=== PATIENT | female | born 1965 | race Hispanic/Latino ===

== ENCOUNTER 2024-09-02 19:27 | Inpatient (IN) | payer SELFPAY ==
[~2024-09-02] VITALS: Ht 149.9 cm; Wt 54.4 kg
[2024-09-02] MEDS ORDERED: KETOROLAC TROMETHAMINE 30 MG/ML VIAL ONE (20:19)
[2024-09-02] MEDS: Morphine 4mg INJECTION 4 MG/ML INJ IV PRN (22:08)
[2024-09-02] MEDS: ONDANSETRON HCL INJ 2MG/ML 2ML 2 MG/ML VIAL IV PRN (22:08)
[2024-09-02 22:19] VITALS: PULSE 97; RESP 18; TEMP 98.3
[2024-09-02] MEDS ORDERED: DEXTROSE 50% SYRINGE 50 ML IV PRN (22:45)
[2024-09-02] MEDS ORDERED: HYDRALAZINE HCL 20 MG/ML VIAL IV PRN (22:45)
[2024-09-02] MEDS: KETOROLAC TROMETHAMINE 60 MG/2 ML VIAL IM ONE (22:47)
[2024-09-02] MEDS: SODIUM CHLORIDE 0.9% 1000ML 1,000 ML IV SCH (23:37)
[2024-09-02] MEDS: KETOROLAC TROMETHAMINE 30 MG/ML VIAL IV STA (23:37)
[2024-09-03] VITALS: BP 157/78; PULSE 89; RESP 18; TEMP 98.2; O2SAT 100
[2024-09-03] MEDS: INSULIN REGULAR, HUMAN 100 UNIT/1 ML SQ SCH
[2024-09-03 05:07] LABS: BASOPHILS % 0.3 % (0.0-1.0); HEMATOCRIT 32.1 % (34.2-44.1); HEMOGLOBIN 9.8 g/dL (12.0-16.0); LYMPHOCYTES # (AUTO) 0.6 (1.0-3.2); LYMPHOCYTES % 9.5 % (18.0-39.1); MEAN CORPUSCULAR HEMOGLOBIN 29.7 pg (28-32); MEAN CORPUSCULAR HGB CONC 30.5 g/dL (31-35); MEAN CORPUSCULAR VOLUME 97.3 fL (81-99); MONOCYTES # (AUTO) 0.5 (0.2-0.8); MONOCYTES % 8.5 % (4.4-11.3); NEUTROPHILS % 81.4 % (38.7-80.0); PLATELET COUNT 142 x10e3/uL (140-360); RED CELL DISTRIBUTION WIDTH 13.2 % (11.7-14.4)
[2024-09-03 05:35] LABS: PROTHROMBIN TIME 13.8 seconds (11.9-14.5)
[2024-09-03 05:36] LABS: PARTIAL THROMBOPLASTIN TIME 30.8 seconds (23.8-35.5)
[2024-09-03 05:43] LABS: ALBUMIN 3.2 g/dL (3.5-5.0); ALBUMIN/GLOBULIN RATIO 0.7 (0.8-2.0); ANION GAP 12.2 mmol/L (8-16); BILIRUBIN,TOTAL 0.3 mg/dL (0.2-1.2); CALCIUM 8.9 mg/dL (8.4-10.2); CREATININE, SERUM 0.66 mg/dL (0.57-1.11); POTASSIUM 4.2 mmol/L (3.5-5.1); TOTAL PROTEIN 8.1 g/dL (6.5-8.1)
[2024-09-03 08:00] VITALS: BP 157/78; PULSE 89; RESP 18; TEMP 98.2; O2SAT 100
[2024-09-03 08:30] VITALS: BP 169/72; PULSE 85; RESP 18; TEMP 98.4; O2SAT 98
[2024-09-03 12:30] VITALS: BP 128/76; PULSE 85; RESP 18; TEMP 97.8; O2SAT 98
[2024-09-03] MEDS ORDERED: ROCURONIUM BROMIDE 1 ML IV ONE ×2 (13:54→17:26)
[2024-09-03] MEDS ORDERED: LIDOCAINE HCL 2% LOCAL INJ 5 ML SDV VIAL INJ ONE (13:54)
[2024-09-03] MEDS ORDERED: SUCCINYLCHOLINE CHLORIDE 20 MG/ML 10ML VIAL ONE (13:54)
[2024-09-03] MEDS ORDERED: PROPOFOL IV EMULSION 10 MG/ML 20 ML VIAL ONE (13:55)
[2024-09-03] MEDS ORDERED: SUGAMMADEX SODIUM 200 MG/2 ML VIAL IV ONE (13:55)
[2024-09-03] MEDS ORDERED: FENTANYL CITRATE/PF 100MCG/2 ML INJ ONE ×2 (13:55→17:54)
[2024-09-03] MEDS ORDERED: MIDAZOLAM HCL 2 MG/2 ML VIAL ONE (13:56)
[2024-09-03] MEDS ORDERED: ACETAMINOPHEN 1000 MG/100 ML 100 ML IV ONE (16:42)
[2024-09-03] MEDS ORDERED: SEVOFLURANE INHAL SOLN 250 ML PEN BTL ONE (16:42)
[2024-09-03 20:00] VITALS: BP 139/59; PULSE 67; RESP 16; TEMP 97.8; O2SAT 95
[2024-09-03] MEDS: KETOROLAC TROMETHAMINE 30 MG/ML VIAL IM PRN (20:07)
[2024-09-04] VITALS (8 sets, daily range): BP systolic 106–123; BP diastolic 50–55; PULSE 67–86; RESP 16–19; TEMP 97–98.7; O2SAT 94–98
[2024-09-04 05:08] LABS: BASOPHILS % 0.2 % (0.0-1.0); HEMATOCRIT 25.7 % (34.2-44.1); HEMOGLOBIN 8.2 g/dL (12.0-16.0); LYMPHOCYTES # (AUTO) 0.5 (1.0-3.2); LYMPHOCYTES % 9.1 % (18.0-39.1); MEAN CORPUSCULAR HEMOGLOBIN 29.7 pg (28-32); MEAN CORPUSCULAR HGB CONC 31.9 g/dL (31-35); MEAN CORPUSCULAR VOLUME 93.1 fL (81-99); MONOCYTES # (AUTO) 0.4 (0.2-0.8); NEUTROPHILS # (AUTO) 4.3 (2.1-6.9); NEUTROPHILS % 82.1 % (38.7-80.0); PLATELET COUNT 124 x10e3/uL (140-360); RED BLOOD COUNT 2.76 x10e6/uL (3.6-5.1); RED CELL DISTRIBUTION WIDTH 13.6 % (11.7-14.4); WHITE BLOOD COUNT 5.28 x10e3/uL (4.8-10.8)
[2024-09-04 05:28] LABS: ALBUMIN 2.8 g/dL (3.5-5.0); ALBUMIN/GLOBULIN RATIO 0.7 (0.8-2.0); ANION GAP 10.7 mmol/L (8-16); BILIRUBIN,TOTAL 0.4 mg/dL (0.2-1.2); CALCIUM 8.3 mg/dL (8.4-10.2); CREATININE, SERUM 0.6 mg/dL (0.57-1.11); POTASSIUM 3.7 mmol/L (3.5-5.1)
[2024-09-04] MEDS: ENOXAPARIN SOD INJ 40 MG/0.4 ML SYR SC SCH (09:54)
[2024-09-04] MEDS: SENNA-S TABLET PO SCH (09:54)
[2024-09-04 10:04] LABS: FERRITIN 155.47 ng/mL (4.63-204.00)
[2024-09-05] VITALS (8 sets, daily range): BP systolic 125–171; BP diastolic 53–79; PULSE 73–97; RESP 16–20; TEMP 97.6–99.1; O2SAT 96–100
[2024-09-05 05:35] LABS: BASOPHILS % 0.2 % (0.0-1.0); EOSINOPHILS # (AUTO) 0.1 (0.0-0.4); EOSINOPHILS % 1.7 % (0.0-6.0); HEMATOCRIT 23.2 % (34.2-44.1); LYMPHOCYTES # (AUTO) 0.7 (1.0-3.2); LYMPHOCYTES % 14.3 % (18.0-39.1); MEAN CORPUSCULAR HEMOGLOBIN 29.7 pg (28-32); MEAN CORPUSCULAR HGB CONC 30.6 g/dL (31-35); MEAN CORPUSCULAR VOLUME 97.1 fL (81-99); MONOCYTES # (AUTO) 0.6 (0.2-0.8); MONOCYTES % 12.4 % (4.4-11.3); NEUTROPHILS # (AUTO) 3.3 (2.1-6.9); NEUTROPHILS % 71.2 % (38.7-80.0); PLATELET COUNT 110 x10e3/uL (140-360); RED BLOOD COUNT 2.39 x10e6/uL (3.6-5.1); RED CELL DISTRIBUTION WIDTH 13.3 % (11.7-14.4); WHITE BLOOD COUNT 4.68 x10e3/uL (4.8-10.8)
[2024-09-05 05:37] LABS: HEMOGLOBIN 7.1 g/dL (12.0-16.0)
[2024-09-05 05:56] LABS: ALBUMIN 2.7 g/dL (3.5-5.0); ALBUMIN/GLOBULIN RATIO 0.7 (0.8-2.0); ANION GAP 10.5 mmol/L (8-16); BILIRUBIN,TOTAL 0.4 mg/dL (0.2-1.2); CALCIUM 8.4 mg/dL (8.4-10.2); CREATININE, SERUM 0.55 mg/dL (0.57-1.11); POTASSIUM 3.5 mmol/L (3.5-5.1); TOTAL PROTEIN 6.8 g/dL (6.5-8.1)
[2024-09-05] MEDS: SODIUM CHLORIDE 0.9% 250ML 250 ML IV ONE (09:40)
[2024-09-05] MEDS: DIPHENHYDRAMINE HCL INJ 50 MG/ML VIAL IV ONE (09:40)
[2024-09-05] MEDS: ACETAMINOPHEN 325 MG TAB PO PRN (11:39)
[2024-09-05] MEDS ORDERED: no home meds (11:59)
[2024-09-05] MEDS: POLYETHYLENE GLYCOL 3350 17 GM PACK PO PRN (14:40)
[2024-09-06] VITALS (7 sets, daily range): BP systolic 117–150; BP diastolic 52–65; PULSE 74–91; RESP 16–18; TEMP 98.2–98.4; O2SAT 95–100
[2024-09-06 06:03] LABS: BASOPHILS % 0.2 % (0.0-1.0); EOSINOPHILS # (AUTO) 0.1 (0.0-0.4); EOSINOPHILS % 2.6 % (0.0-6.0); LYMPHOCYTES # (AUTO) 0.6 (1.0-3.2); LYMPHOCYTES % 10.4 % (18.0-39.1); MEAN CORPUSCULAR HEMOGLOBIN 30.3 pg (28-32); MEAN CORPUSCULAR VOLUME 97.6 fL (81-99); MONOCYTES # (AUTO) 0.6 (0.2-0.8); MONOCYTES % 11.2 % (4.4-11.3); NEUTROPHILS % 75.2 % (38.7-80.0); PLATELET COUNT 136 x10e3/uL (140-360); RED BLOOD COUNT 2.51 x10e6/uL (3.6-5.1); RED CELL DISTRIBUTION WIDTH 13.3 % (11.7-14.4); WHITE BLOOD COUNT 5.37 x10e3/uL (4.8-10.8)
[2024-09-06 06:16] LABS: HEMATOCRIT 23.5 % (34.2-44.1); HEMOGLOBIN 7.7 g/dL (12.0-16.0)
[2024-09-06 06:26] LABS: ALBUMIN 2.8 g/dL (3.5-5.0); ALBUMIN/GLOBULIN RATIO 0.6 (0.8-2.0); ANION GAP 12.7 mmol/L (8-16); BILIRUBIN,TOTAL 0.6 mg/dL (0.2-1.2); CALCIUM 9.2 mg/dL (8.4-10.2); CREATININE, SERUM 0.54 mg/dL (0.57-1.11); POTASSIUM 3.7 mmol/L (3.5-5.1); TOTAL PROTEIN 7.2 g/dL (6.5-8.1)
[2024-09-07] VITALS (7 sets, daily range): BP systolic 118–141; BP diastolic 53–95; PULSE 81–93; RESP 16–18; TEMP 97.5–97.7; O2SAT 99–100
[2024-09-07 05:39] LABS: HEMATOCRIT 24.4 % (34.2-44.1); HEMOGLOBIN 7.9 g/dL (12.0-16.0)
[2024-09-07 06:13] LABS: ANION GAP 12.9 mmol/L (8-16); CALCIUM 9.2 mg/dL (8.4-10.2); CREATININE, SERUM 0.6 mg/dL (0.57-1.11); POTASSIUM 3.9 mmol/L (3.5-5.1)
[2024-09-07] MEDS: DIPHENHYDRAMINE HCL 25 MG CAP PO ONE (14:11)
[2024-09-07] MEDS: SODIUM CHLORIDE 0.9% 250ML 250 ML ONE (14:30)
== END 2024-09-07 17:12 | disposition home or self-care (01) | DRG 481 ==
LOC: FSED 20:00 → ERHOLD 21:35 → MED/SURG 22:50
PROVIDERS: ADMIT Family Medicine Adult Medicine; ATTEND Family Medicine Adult Medicine
PROC: 0QS606Z Reposition Right Upper Femur with Intramedullary Internal Fixation Device, Open Approach (ICD-10-PCS; principal; 2024-09-03 15:52)
DX: S72.141A Displaced intertrochanteric fracture of right femur, initial encounter for closed fracture (principal); D62 Acute posthemorrhagic anemia; I10 Essential (primary) hypertension; E11.9 Type 2 diabetes mellitus without complications; M32.9 Systemic lupus erythematosus, unspecified; W01.0XXA Fall on same level from slipping, tripping and stumbling without subsequent striking against object, initial encounter; Z79.01 Long term (current) use of anticoagulants; Z87.891 Personal history of nicotine dependence; Z82.49 Family history of ischemic heart disease and other diseases of the circulatory system; Z83.3 Family history of diabetes mellitus
CPT/HCPCS: 36415; 71045; 72170; 76000; 80048; 80053; 82728; 82746; 82948; 83036; 83540; 84466; 85014; 85018; 85025; 85045; 85610; 85730; 86850; 86870; 86880; 86900; 86905; 86920; 86922; 93005; 94799; 99001; 99252; 99284; C1713; J0330; J0690; J1200; J1650; J1885; J2003; J2250; J2270; J2405; J7030; J7050